=== PATIENT | male | born 1995 | race Caucasian/White ===

== ENCOUNTER → 2016-07-05 | Outpatient (CLI) | payer OTHER ==
[~2016-07-05] MED LIST: FRCT/ PO; ITRA100C PO
[2016-07-05 12:53] LABS: ALKALINE PHOSPHATASE 65 U/L (45-117); ALT/SGPT 27 U/L (12-78); AST/SGOT 24 U/L (15-37)
== END | disposition home or self-care (01) ==
LOC: C.LAB 11:27
PROVIDERS: ATTEND Internal Medicine Critical Care Medicine
DX: J18.9 Pneumonia, unspecified organism (principal); B40.9 Blastomycosis, unspecified; B45.9 Cryptococcosis, unspecified

== ENCOUNTER 2016-07-09 13:27 | Emergency (ER) | payer OTHER ==
[~2016-07-09] VITALS: Ht 180.3 cm; Wt 74.0 kg
[2016-07-09 13:33] VITALS: TEMP 36.4; Ht 180.3 cm; Wt 74.0 kg
[2016-07-09] MEDS ORDERED: KETOROLAC TROMETHAMINE 30 MG/ML VIAL IV STA (14:22)
[2016-07-09] MEDS ORDERED: SODIUM CHLORIDE 0.9% 1000ML 1,000 ML IV SCH (14:30)
--- NOTE | 2016-07-09 15:07 | DIAGNOSTIC IMAGING REPORT ---
CT HEAD WITHOUT CONTRAST (CT) CLINICAL HISTORY: Change in mental status. COMPARISON STUDY: 04/11/2014 TECHNIQUE: Axial CT of the brain is performed from the vertex to the skull base. IV contrast was not administered for this examination. CT DOSE: 537.48 mGy.cm FINDINGS: No intra or extra-axial mass lesions are visualized. There is no CT evidence of acute cortical infarction. There is no evidence of midline shift. There is no acute hemorrhage. No calvarial fractures are visualized. There is no evidence of pathologic ventricular dilatation. There is no evidence of acute sinusitis IMPRESSION: Normal noncontrast head CT. Electronically signed by: Pavel Yip M.D. 07/09/2016 3:06 PM Dictated Date/Time: 07/09/2016 3:05 PM
[2016-07-09 15:14] LABS: BUN/CREATININE RATIO 15.7 (10-20); CALCIUM 9.4 mg/dl (8.5-10.1); CREATININE 1.1 mg/dl (0.60-1.40); POTASSIUM 4.3 mmol/L (3.5-5.1)
[2016-07-09 15:47] LABS: HEMATOCRIT 42.3 % (42-52); MEAN CELL VOLUME 88.5 fL (80-100); MEAN CORPUSCULAR HEMOGLOBIN 31.2 pg (25-34); MEAN CORPUSCULAR HGB CONC 35.2 g/dl (32-36); MEAN PLATELET VOLUME 12.1 fL (7.4-10.4); PLATELET COUNT 100 K/uL (130-400); RED BLOOD COUNT 4.78 M/uL (4.7-6.1); WHITE BLOOD COUNT 7.12 K/uL (4.8-10.8)
[2016-07-09] MEDS ORDERED: ITRA100C PO (15:48)
[2016-07-09 15:51] LABS: BASO % 0.1 %; BASO ABS # 0.01 K/uL (0-0.2); COMPLETE YES; EOS % 0.1 %; IG% 0.3 %; LYMPH % 12.1 %; LYMPH ABS # 0.86 K/uL (1.2-3.4); NEUT % 80.4 %; OVALOCYTES 1+; PLT ESTIMATE DECREASED
[2016-07-09] MEDS ORDERED: FRCT/ PO (16:43)
--- NOTE | 2016-07-09 16:44 | EMERGENCY ROOM VISIT NOTE ---
History First contact with patient: 13:52 Chief Complaint: HEADACHE Stated Complaint: HEADACHE FROM EXCERCISE History of Present Illness The patient is a 20 year old male who presents to the Emergency Room with complaints of post-exertional headache. Patient notes that for the past 4 days he has been having headaches after working. He has been doing a combination of running and weights. He does well with running and does not get headaches. However, for the past 3 days, the minute he does any type of upper body weight (push ups, bench press, pull ups), he gets a sudden headache. The headache is currently a 7/10 pounding pain on the right side of his scalp. At its peak the headache is a 9/10. It does not radiate to the neck. He does have mild photophobia, but does not have blurred vision or double vision. He denies any tearing or retroorbital pain. He headache persists throughout the rest of the day. He has tried taking 1 Ibuprofen tablet daily. The pain is not worsened by any movement of the neck. He denies injury to the head or neck. He is very active and exercises daily. He denies chest pain, palpitations or exercise intolerance due to shortness of breath or wheezing. His appetite and voiding have been normal. He does note that he drinks a lot of caffeine in the morning but has not had his daily caffeine since his headaches started. He does notes that he has had URI 'head cold' symptoms for the past week. Review of Systems A 10 point review of systems was negative unless stated above. 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 Family History None Social History Smoking Status: Never Smoker Smokeless Tobacco Use: No Alcohol Use: occasionally (5-6 unites per week) Drug Use: none Marital Status: single Housing Status: lives with friends Occupation Status: [employer] student ([employer]) Current/Historical Medications Scheduled Itraconazole (Sporanox), 200 MG PO QAM Scheduled PRN Acetamin/Butalbital/Caffeine (Fioricet), 1 TAB PO UD PRN for Pain Allergies Coded Allergies: No Known Allergies (Unverified , 04/11/14) Physical Exam Vital Signs Date Time Temp Pulse Resp B/P Pulse Ox O2 Delivery O2 Flow Rate FiO2 07/09/16 17:13 43 18 139/82 97 Room Air 07/09/16 15:14 55 18 144/79 100 Room Air 07/09/16 14:05 45 07/09/16 13:33 36.4 43 16 151/84 97 Room Air Physical Exam Constitutional: Vital signs as above were reviewed. Eyes: Pupils equal, round, and reactive to light. Extraocular muscles are intact. No proptosis. Funduscopy: no papilledema bilaterally ENT: Mucous membranes are moist. Oropharynx is clear. No sinus tenderness. TMs are clear bilaterally. Cardiovascular: Bradycardia rate 40s with regular rhythm. Pulses are palpable and symmetric in all 4 extremities. No pedal edema appreciated. Respiratory: Lungs clear to auscultation bilaterally. No wheezes, rales, or rhonchi appreciated. No accessory muscle use. No retractions. No increased work of breathing. GI: Abdomen soft, nontender, nondistended. Normal active bowel sounds. No abdominal hernias appreciated. No rebound. No guarding. : No CVA tenderness appreciated. Musculoskeletal: No midline cervical or vertebral tenderness. Normal cervical ROM. No gross deformities. No bony tenderness. No calf swelling or tenderness. Integumentary: Warm, dry, no rashes appreciated. Neurological: Patient awake, alert, and oriented x 3. Cranial nerves two through 12 grossly intact. Motor 5 out of 5 strength bilateral upper and lower extremities. Lymph: No cervical lymphadenopathy appreciated. Medical Decision & Procedures ER Provider Diagnostic Interpretation: CT HEAD WITHOUT CONTRAST (CT) CLINICAL HISTORY: Change in mental status. COMPARISON STUDY: 04/11/2014 TECHNIQUE: Axial CT of the brain is performed from the vertex to the skull base. IV contrast was not administered for this examination. CT DOSE: 537.48 mGy.cm FINDINGS: No intra or extra-axial mass lesions are visualized. There is no CT evidence of acute cortical infarction. There is no evidence of midline shift. There is no acute hemorrhage. No calvarial fractures are visualized. There is no evidence of pathologic ventricular dilatation. There is no evidence of acute sinusitis IMPRESSION: Normal noncontrast head CT. Electronically signed by: Pavel Yip M.D. 07/09/2016 3:06 PM Laboratory Results 07/09/16 14:40 Red Blood Count 4.78, Mean Corpuscular Volume 88.5, Mean Corpuscular Hemoglobin 31.2, Mean Corpuscular Hemoglobin Concent 35.2, Mean Platelet Volume 12.1, Neutrophils (%) (Auto) 80.4, Lymphocytes (%) (Auto) 12.1, Monocytes (%) (Auto) 7.0, Eosinophils (%) (Auto) 0.1, Basophils (%) (Auto) 0.1, Neutrophils # (Auto) 5.72, Lymphocytes # (Auto) 0.86, Monocytes # (Auto) 0.50, Eosinophils # (Auto) 0.01, Basophils # (Auto) 0.01 07/09/16 14:40 Test 07/09/16 14:40 White Blood Count 7.12 K/uL (4.8-10.8) Red Blood Count 4.78 M/uL (4.7-6.1) Hemoglobin 14.9 g/dL (14.0-18.0) Hematocrit 42.3 % (42-52) Mean Corpuscular Volume 88.5 fL (80-100) Mean Corpuscular Hemoglobin 31.2 pg (25-34) Mean Corpuscular Hemoglobin Concent 35.2 g/dl (32-36) Platelet Count 100 K/uL (130-400) Mean Platelet Volume 12.1 fL (7.4-10.4) Neutrophils (%) (Auto) 80.4 % Lymphocytes (%) (Auto) 12.1 % Monocytes (%) (Auto) 7.0 % Eosinophils (%) (Auto) 0.1 % Basophils (%) (Auto) 0.1 % Neutrophils # (Auto) 5.72 K/uL (1.4-6.5) Lymphocytes # (Auto) 0.86 K/uL (1.2-3.4) Monocytes # (Auto) 0.50 K/uL (0.11-0.59) Eosinophils # (Auto) 0.01 K/uL (0-0.5) Basophils # (Auto) 0.01 K/uL (0-0.2) RDW Standard Deviation 46.9 fL (36.4-46.3) RDW Coefficient of Variation 14.4 % (11.5-14.5) Immature Granulocyte % (Auto) 0.3 % Immature Granulocyte # (Auto) 0.02 K/uL (0.00-0.02) Platelet Estimate DECREASED Ovalocytes 1+ Anion Gap 8.0 mmol/L (3-11) Est Creatinine Clear Calc Drug Dose 111.2 ml/min Estimated GFR () 110.6 Estimated GFR (Non- 95.5 BUN/Creatinine Ratio 15.7 (10-20) Calcium Level 9.4 mg/dl (8.5-10.1) Medications Administered Medications (Trade) Dose Ordered Sig/Blake Route Start Time Stop Time Status Last Admin Dose Admin Sodium Chloride (Nss 1000ml) 1,000 ml @ 999 mls/hr Q1H1M IV 07/09/16 14:30 07/09/16 17:27 DC 07/09/16 14:45 999 MLS/HR Ketorolac Tromethamine (Toradol Inj) 30 mg NOW STAT IV 07/09/16 14:22 07/09/16 14:25 DC 07/09/16 14:45 30 MG ECG Comparison ECG Date: no prior available Change: Sinus Bradycardia Rate [address] elevation, likely early repolarization No ectopy or pauses ED Course 14:00 - Patient seen and evaluated Orders: CBC, BMP, EKG, 1 L NSS, 30 mg IV Toradol 14:30 - Reviewed case with Dr Bagley CT brain ordered 16:00 - Patient re-assessed; notes feeling significantly better CT brain reviewed; no evidence of bleeding or acute process 16:40 - Discussed results with patient; recommend discharge; patient agreeable 16:50 - Patient discharged in stable condition. Medical Decision 20 year old male who presents with multiple exertional headaches described as worst headache of his life. A thorough history was obtained, physical examination performed and the EMR was reviewed. The case was reviewed multiple times over with Dr. Tl Hampton during the patient's ED visit. Differential diagnosis includes: Headaches (tension, migraine, cluster), dehydration, sinus-headache, intracranial hemorrhage, meningitis, encephalitis. Patient presents, appearing non-toxic. A thorough physical examination to assess cranial and peripheral nerves was performed and entirely normal. Absence of papilledema was reassuring for lack of raised intracranial pressure. Given quality of headache and being described as worst headache of his life, we did a CT scan to rule out bleed. This was fortunately negative. He was treated with1 dose of Toradol, which was very helpful in alleviating his pain. Cause of his exertional headaches is uncertain. Possibly due to sub-clinical dehydration on a background of URI, reported by the patient. Patient also does note extensive caffeine intake so caffeine withdrawal might also be a consideration. I recommended a trial of PRN Fioricet for headaches. He was cautioned on careful use of ibuprofen and Tylenol and advised that if he takes Fioricet he should not take Tylenol due to doubling of the Tylenol dosing.. I did recommend staying off weight-lifting activities for the next 1-2 weeks and re- start gradually as tolerated. He has been advised to see his PCP within 1 week of discharge to ensure he continues to improve. He was discharged in stable condition. Impression Primary Impression: Exertional headache Additional Impression: Intracranial hemorrhage Departure Information Dispostion Home / Self-Care Condition GOOD Prescriptions Acetamin/Butalbital/Caffeine (FIORICET) 1 Ea Tab 1 TAB PO UD Y for Pain for 30 Days, #30 TAB 1-2 tablets every 6 hours; not to exceed 6 tablets daily Prov: Yfn Parker MD 07/09/16 Referrals [facility] (PCP) Patient Instructions My [facility] Additional Instructions You came to the emergency department for a sudden and severe headache with upper body weight training for the past 3 days. We did labwork on you which was normal. There is no evidence of infection and your kidney and your liver function is within normal limits. It is highly unlikely that you have infections of the brain such meningitis or encephalitis. We also did CT scan of your brain to rule out any other abnormality. The CT was entirely normal. Fortunately, all your work-up was negative. The cause of your headaches is unclear. Some possibilities, either alone or in combination include, having a viral infection, caffeine withdrawal and subacute muscle tightness in the neck. We will prescribe you with a medicine called Fioricet. This medicine has caffeine in it and may be helpful in the future if these headaches return. In addition, it is safe for you to take Ibuprofen or Tylenol along with the Itraconazole that you are currently on. You should follow-up with your primary care provider in 1 week to ensure that you continue improve. If you are looking for a PCP, you can contact Dr. Yfn Parker ([facility]): [address], [address] [place] [address] If your symptoms fail to improve, acutely worsen, please seek medical attention immediately by either calling your primary care provider or going to your nearest emergency department. If your headache returns and is persistent, you need to be evaluated by a medical professional. Otherwise, please see your primary care provider in 3-5 days to ensure that your symptoms continue to improve. It was a pleasure to be involved in your care and we wish you all the best. Problem Qualifiers
--- NOTE | 2016-07-09 16:54 | EMERGENCY ROOM VISIT NOTE ---
ED Visit Note First contact with patient: 14:26 Resident Physician Supervision Note: I interviewed and examined the patient. Discussed with and agree with findings and plan as documented in the note. Any exceptions or clarifications are listed here: [None] Documented By: Tl Hampton
[2016-07-09 17:13] VITALS: BP 139/82; PULSE 43; O2SAT 97
== END 2016-07-09 17:16 | disposition home or self-care (01) ==
LOC: C.EDB 13:29 → C.EDC 17:16
DX: G44.84 Primary exertional headache (principal); I62.9 Nontraumatic intracranial hemorrhage, unspecified

== ENCOUNTER → 2016-07-15 | Outpatient (CLI) | payer OTHER ==
--- NOTE | 2016-07-15 09:05 | DIAGNOSTIC IMAGING REPORT ---
CT OF THE CHEST WITHOUT IV CONTRAST CLINICAL HISTORY: R91.1 Pulmonary [id number] Pneumonia with cavity of [id number] COMPARISON STUDY: 03/18/2016 CT DOSE: 342.57 mGycm TECHNIQUE: CT of the thorax was performed from the thoracic inlet to the lung bases. Images are reviewed in the axial, sagittal, and coronal planes. IV contrast was not administered for this examination. FINDINGS: Thyroid: Imaged portions of the thyroid gland are normal in appearance. Thoracic aorta: The thoracic aorta is normal in course and caliber, noting standard 3 vessel arch anatomy. Heart: The heart is normal in size and configuration, without pericardial effusion. Lungs and pleural spaces: No pleural effusions are visualized. There is a persistent 2 cm left apical mass. This was previously cavitary, and now appears solid versus fluid filled. There is no residual cavity. There are no additional parenchymal abnormalities. Mediastinum: There is no mediastinal lymphadenopathy. [place]: Clear. Axilla: Clear. Upper abdomen: Partially visualized upper abdominal viscera is within normal limits. Skeletal structures: There are no lytic or blastic osseous lesions. IMPRESSION: 1. Persistent 2 cm left apical mass. This was previously cavitary, and now appears solid versus fluid filled. No residual cavity is evident. There are no additional parenchymal abnormalities. Electronically signed by: Pavel Yip M.D. 07/15/2016 9:04 AM Dictated Date/Time: 07/15/2016 8:58 AM
== END | disposition home or self-care (01) ==
LOC: C.CTS 08:44
PROVIDERS: ATTEND Internal Medicine Critical Care Medicine
DX: B40.9 Blastomycosis, unspecified (principal); J18.9 Pneumonia, unspecified organism; R91.1 Solitary pulmonary nodule

== ENCOUNTER → 2016-09-02 | Outpatient (CLI) | payer OTHER ==
[~2016-09-02] MED LIST changes: -FRCT/ PO
== END | disposition home or self-care (01) ==
LOC: C.LAB 11:36
PROVIDERS: ATTEND Internal Medicine Critical Care Medicine
DX: J18.9 Pneumonia, unspecified organism (principal); B40.9 Blastomycosis, unspecified; B45.9 Cryptococcosis, unspecified

== ENCOUNTER → 2016-09-16 | Outpatient (CLI) | payer OTHER ==
--- NOTE | 2016-09-16 09:32 | DIAGNOSTIC IMAGING REPORT ---
CHEST CT WITHOUT CONTRAST CT DOSE: 283.18 mGy.cm HISTORY: Pulmonary nodule PULMONARY NODULE, CAVITARY LUNG TECHNIQUE: Multiaxial CT images of the chest were performed without contrast. COMPARISON: 07/15/2016 FINDINGS: 2 cm left apical nodule unchanged from the prior study. No new or interval process. The nodule itself shows no change in density characteristics configuration or size. Slight apical fibrotic change unaltered Lungs otherwise are clear. No significant mediastinal or hilar adenopathy. Limited evaluation of the upper abdomen is unremarkable. IMPRESSION: 1. Stable 2 cm left apical pulmonary nodule. 2. Study is otherwise negative] Electronically signed by: Zheng Lozano M.D. 09/16/2016 9:30 AM Dictated Date/Time: 09/16/2016 9:26 AM
== END | disposition home or self-care (01) ==
LOC: C.CTS 08:18
PROVIDERS: ATTEND Internal Medicine Critical Care Medicine
DX: B40.9 Blastomycosis, unspecified (principal); J18.9 Pneumonia, unspecified organism; R91.1 Solitary pulmonary nodule